=== PATIENT | female | born 1955 | race Caucasian/White ===

== ENCOUNTER → 2022-12-05 10:10 | Outpatient (CLI) | payer MEDICARE, OTHER, SELFPAY ==
[2022-12-05 11:55] LABS: Alanine Aminotransferase 29 IU/L (<35); Albumin 4.7 g/dL (3.5-5.0); Albumin Globulin Ratio 1.5 (1.0-2.8); Alkaline Phosphatase 102 U/L (38-126); Aspartate Aminotransferase 29 IU/L (14-36); BUN Creatinine Ratio 17.2 (6-22); Bilirubin Total 0.4 mg/dL (0.2-1.3); Blood Urea Nitrogen 15 mg/dL (7-17); Calcium 9.8 mg/dL (8.4-10.2); Carbon Dioxide 26 mmol/L (22-32); Chloride 102 mmol/L (98-107); Estimated Glomerular Filt Rate > 60 mL/min (>60); Globulin 3.2 g/dL (1.7-4.1); Glucose 95 mg/dL (80-110); HDL Cholesterol 50 mg/dL (40-60); HEMOLYSIS < 15 (0-50); Potassium 4.2 mmol/L (3.4-5.1); Sodium 138 mmol/L (137-145); Total Protein 7.9 g/dL (6.3-8.2); Triglycerides 425 mg/dL (35-150)
[2022-12-05 12:02] LABS: Cholesterol 341 mg/dL (140-199)
[2022-12-05 12:26] LABS: Hepatitis B Surface Antigen NEGATIVE s/c (NEGATIVE)
[2022-12-05 12:42] LABS: HIV 1 & 2 Ab/Ag 4th Gen Combo NEGATIVE (NEGATIVE); Hep C Virus Ab w/Reflex Quant NEGATIVE s/c (NEGATIVE)
[2022-12-05 14:26] LABS: Urine N gonorrhoeae NOT DETECTED
[2022-12-05 14:27] LABS: Urine Chlamydia NOT DETECTED
[2022-12-06 05:53] LABS: RPR Screen Non Reactive (Non Reactive)
== END ==
PROVIDERS: PCP Family Medicine; Referring Provider Family Medicine; Visit Provider Family Medicine
DX: Z11.3 Encounter for screening for infections with a predominantly sexual mode of transmission (principal); B00.9 Herpesviral infection, unspecified; M81.0 Age-related osteoporosis without current pathological fracture; Z79.890 Hormone replacement therapy
CPT/HCPCS: 36415; 80053; 80061; 86592; 86803; 87340; 87389; 87491; 87591

== ENCOUNTER → 2023-11-01 14:07 | Outpatient (CLI) | payer MEDICARE, OTHER, SELFPAY ==
--- NOTE | 2023-11-01 14:09 | DI.RAD.S_ITS ---
PROCEDURE: XR DEXA AXIAL SKELETON INDICATIONS: screening COMPARISON: None. FINDINGS: Lumbar Spine: Bone mineral density 1.020 g/cm2, T score -2.0. Left Hip: Bone mineral density 0.827 g/cm2, T score -0.9. Left Femoral Neck: Bone mineral density 0.610 g/cm2, T score -2.2. Right Hip: Bone mineral density 0.788 g/cm2, T score -1.3. Right Femoral Neck: Bone mineral density 0.565 g/cm2, T score -2.6. Fracture Risk Calculation (when applicable): FRAX not provided due to osteoporosis. (T score greater or equal to -1.0 to: NORMAL) (T score from -1.1 to -2.4: OSTEOPENIA) (T score less than or equal to -2.5: OSTEOPOROSIS) IMPRESSION: Osteoporosis at the right femoral neck. Follow-up guidelines as follows: Osteoporosis: Consider a repeat DEXA and Vertebral Fracture Assessment (VFA) exam in 2 years or sooner if medically necessary, to reassess this patient's status. Osteopenia: Consider a repeat DEXA in 2-3 years to reassess this patient's status, or if there is a new clinical indication. Normal: Consider a repeat DEXA in 5 years or sooner, or if there is a new clinical indication. Dictated by: Chino Arguello M.D. on 11/01/2023 at 15:04 Approved by: Chino Arguello M.D. on 11/01/2023 at 15:08
--- NOTE | 2023-11-01 14:09 | DI.MG.S_ITS ---
BILATERAL DIGITAL SCREENING MAMMOGRAM 3D/2D WITH CAD: 11/01/2023 CLINICAL: Routine screening. Additional films were requested but not obtained. Both breasts are heterogeneously dense, which may obscure small masses (category c / 51-75% glandular tissue). Current study was also evaluated with a Computer Aided Detection (CAD) system. No significant masses, calcifications, or other findings are seen in either breast. IMPRESSION: NEGATIVE There is no mammographic evidence of malignancy. A 1 year screening mammogram is recommended. Based on the Tyrer Cuzick model (a risk assessment model) the patient's lifetime risk is 10.5% and her 10 year risk is 5.3%. According to the ACR, ACS, and NCCN guidelines, an annual breast MRI exam along with mammogram is recommended if the patient's lifetime risk is 20% or greater. This exam was interpreted at Station ID: [id number]. NOTE: For mammograms, a report in lay terms will be sent to the patient. Approximately 15% of breast malignancies will not be visualized mammographically. In the management of a palpable breast mass, a negative mammogram must not discourage biopsy of a clinically suspicious lesion. Electronically Signed By: Shukri valle/smita:11/05/2023 15:19:49 letter sent: Normal Exam ACR BI-RADS Category 1: Negative 3341F
== END ==
PROVIDERS: PCP Family Medicine; Referring Provider Family Medicine; Visit Provider Family Medicine
DX: R92.333 Mammographic heterogeneous density, bilateral breasts (principal); Z12.31 Encounter for screening mammogram for malignant neoplasm of breast; M81.0 Age-related osteoporosis without current pathological fracture; Z91.89 Other specified personal risk factors, not elsewhere classified
CPT/HCPCS: 77063; 77067; 77080

== ENCOUNTER 2023-11-14 12:47 | Day surgery (SDC) | payer MEDICARE, OTHER, SELFPAY ==
--- NOTE | 2023-11-14 | PATH_ITS ---
[facility] Accession Number: [id number] No. of containers..02 Tissue . 01 Material submitted: . PART A: colon - ASCENDING POLYPS PART B: colon - DESCENDING POLYP . 01 Diagnosis: Part A: ASCENDING POLYPS: Tubular adenomas. . Part B: DESCENDING POLYP: Tubular adenoma. [facility] 11/18/2023 1150 Local . 01 Electronically signed: . Marvin Grimes MD, Pathologist NPI- [id number] . 01 Gross description: . A. Received in formalin with two patient identifiers and ascending polyps, are two terrazas-white polypoid tissues measuring 0.2 and 0.3 cm in greatest dimension. The specimens are entirely submitted in cassette A1. . B. Received in formalin with two patient identifiers and descending polyp, is a 0.8 x 0.7 x 0.5 cm, terrazas, granular, pedunculated, polypoid tissue which is inked, bisected, and entirely submitted in cassette B1. ([id number]) /MRV 11/18/2023 1150 Local . 01 Pathologist provided ICD-10: D12.2, D12.4 . 01 CPT . 247640, [id number] Specimen Comment: A courtesy copy of this report has been sent to [phone] Performed at: 01 [facility] [address] [place] [address], [place], [place] [id number] MD Marvin Grimes MD Phone: [phone]
[2023-11-14 13:13] VITALS: BP 143/77; PULSE 65; RESP 16; TEMP 36.7; O2SAT 98
[2023-11-14] MEDS: LACTATED RINGERS 1,000 ML 150 ML IV (13:15)
--- NOTE | 2023-11-14 13:26 | P.HP_ITS ---
History of Present Illness History of Present Illness Date Patient Seen: 11/14/23 Time Patient Seen: 13:26 Chief complaint: Colonoscopy Narrative: Adia is a 67-year-old woman here for colonoscopy. Her last colonoscopy was in 2017 and she would polyps removed and was told to repeat her colonoscopy after 3 years. She did postpone her colonoscopy due to COVID. She has a grandmother who at a young age from colon cancer. [facility] Medical History (Updated 11/14/23 @ 13:27 by Christian Aleman MD) Rosacea (~1992) Rheumatoid arthritis Asthma Hepatitis Chicken pox Heavy menstrual period Genital warts Colon polyps Skin cancer Hyperlipidemia, mixed Encounter for initial annual wellness visit (AWV) in Medicare patient Hormone replacement therapy Osteoporosis Herpes simplex type 2 infection Surgical History (Updated 12/23/22 @ 21:35 by Sunitha Quintana) Anesthesia History of section Status post Mohs surgery Family History (Updated 12/23/22 @ 21:38 by Sunitha Quintana) Grandfather Liver cancer Grandmother Diabetes mellitus History of heart disease Hypertension Grandfather Mental health problem Grandmother Colon cancer Social History Smoking Status: Never smoker alcohol intake: current Meds Home Medications and Allergies Home Medications Medication Instructions Recorded Confirmed Type estradiol 0.01% (0.1 mg/gram) See Rx Instructions vaginal DAILY 12/05/22 11/14/23 Rx vaginal cream (Estrace) #42.5 grams valacyclovir 1 gram tablet 1,000 mg PO DAILY 7 days #30 tabs 10/16/23 11/14/23 Rx peg 3350-sod sulf,itnef-pml-exk 1,000 ml PO DIRECTED #2,000 mL 11/01/23 Rx 178.7-7.3-0.5-1.12-0.9 gram oral soln (Suflave) albuterol sulfate 90 mcg/actuation 2 puff inhalation PRN sob 11/14/23 History aerosol inhaler alendronate 70 mg tablet (Fosamax) 70 mg PO QWEEK 11/14/23 11/14/23 History Allergies Allergy/AdvReac Type Severity Reaction Status Date / Time Sulfa (Sulfonamide AdvReac Mild Verified 12/05/22 09:29 Antibiotics) Exam Vital Signs (past 8 hours): - 11/14/23 13:13 Temperature 98.1 F Pulse Rate 65 Respiratory Rate 16 Blood Pressure 143/77 H Pulse Oximetry 98 Oxygen Delivery Method Room Air Oxygen Delivery Method Room Air Const General: healthy appearing Resp Effort & Inspection: normal respiratory effort Assessment & Plan Assessment and plan (1) History of colon polyps: Status: Acute Plan We reviewed the risks and benefits of colonoscopy and she would like to proceed.
[2023-11-14 14:05] VITALS: BP 98/58; PULSE 58; RESP 16; TEMP 36.2; O2SAT 98
--- NOTE | 2023-11-14 14:07 | PM.OP.COLON ---
Operative Date/Time/Diagnoses Date of procedure: 11/14/23 Time of procedure: 14:07 Pre-op diagnosis: History of polyps Post-op diagnosis: same Procedure & Clinicians Study performed: Colonoscopy Same procedure as scheduled: Yes Surgeon: Christian Aleman Procedure Notes Procedure in detail: Surgeon: Christian Aleman MD Anesthesia: Vamshi Abrams MD Procedure: The patient was brought to the endoscopy suite, placed in left lateral decubitus position. The patient was connected to monitoring devices. A time-out was performed. Sedation was administered. Once the patient was adequately sedated, a digital rectal exam was performed and was normal. The scope was then inserted and advanced to the cecum where the appendiceal orifice was identified and photographed. The scope was then slowly withdrawn over greater than 6 minutes. The mucosa was thoroughly inspected. There were 2 small polyps in the ascending colon removed with a cold snare and sent together. There was a 1.3 cm polyp in the proximal descending colon or distal transverse colon. It was taken with a hot snare and removed with a Lee net. We then went back in to inject some tattoo ink into the mucosa just distally and proximally to the polypectomy site. The rest of the colon was normal. The scope was retroflexed in the rectum. No other abnormalities were seen. The scope was straightened and removed. The patient was awakened and brought to recovery. Scope withdrawal time: 19 minutes Sedation time: 29 minutes EBL: 5 mL Findings: 2 small polyps in the ascending colon and a 1.3 cm polyp near the splenic flexure Post-procedure Disposition: PACU
[2023-11-14 14:10] VITALS: BP 99/58; PULSE 54; RESP 16; O2SAT 98
[2023-11-14 14:15] VITALS: BP 110/64; PULSE 54; RESP 16; O2SAT 98
== END 2023-11-14 14:27 | disposition home or self-care (01) ==
PROVIDERS: PCP Family Medicine; Referring Provider Surgery; Visit Provider Surgery
PROC: 0DJD8ZZ Inspection of Lower Intestinal Tract, Via Natural or Artificial Opening Endoscopic (ICD-10-PCS; CPT 45378; principal; 2023-11-14 13:30)
DX: Z12.11 Encounter for screening for malignant neoplasm of colon (principal); Z86.010 Personal history of colon polyps; D12.2 Benign neoplasm of ascending colon; D12.4 Benign neoplasm of descending colon
CPT/HCPCS: 45381; 45385; J2704

== ENCOUNTER → 2023-11-26 10:27 | Outpatient (CLI) | payer MEDICARE, OTHER, SELFPAY | PROVIDERS: PCP Family Medicine; Visit Provider Student in an Organized Health Care Education/Training Program | DX: J02.9 Acute pharyngitis, unspecified (principal) | CPT/HCPCS: 87070 ==

== ENCOUNTER → 2024-02-26 09:31 | Outpatient (CLI) | payer MEDICARE, OTHER, SELFPAY ==
[2024-02-26 11:03] LABS: Erythrocyte Sedimentation Rate 51 MM/HR (0-20)
[2024-02-26 11:28] LABS: TSH w/ Reflex to FT4 4.98 uIU/mL (0.47-4.68)
[2024-02-26 19:26] LABS: Alanine Aminotransferase 22 IU/L (<35); Albumin 4.4 g/dL (3.5-5.0); Albumin Globulin Ratio 1.5 (1.0-2.8); Alkaline Phosphatase 80 U/L (38-126); Aspartate Aminotransferase 27 IU/L (14-36); BUN Creatinine Ratio 27.5 (6-22); Bilirubin Total 0.6 mg/dL (0.2-1.3); Blood Urea Nitrogen 19 mg/dL (7-17); Calcium 9.7 mg/dL (8.4-10.2); Carbon Dioxide 19 mmol/L (22-32); Chloride 106 mmol/L (98-107); Cholesterol 309 mg/dL (140-199); Estimated Glomerular Filt Rate > 60 mL/min (>60); Glucose 90 mg/dL (80-110); HDL Cholesterol 42 mg/dL (40-60); HEMOLYSIS < 15 (0-50); LDL Cholesterol Calculated 216 mg/dL (<100); Potassium 4.5 mmol/L (3.4-5.1); Sodium 137 mmol/L (137-145); Total Protein 7.4 g/dL (6.3-8.2); Triglycerides 253 mg/dL (35-150)
[2024-02-26 19:37] LABS: LDL Cholesterol Direct 201 mg/dL (<100)
[2024-02-26 19:42] LABS: Rheumatoid Factor 349.5 IU/mL (<12.0)
[2024-02-28 11:15] LABS: CCP Antibodies IgG/IgA >250 units (0-19)
== END ==
PROVIDERS: PCP Family Medicine; Referring Provider Family Medicine; Visit Provider Family Medicine
DX: Z00.00 Encounter for general adult medical examination without abnormal findings (principal); E78.2 Mixed hyperlipidemia; M81.0 Age-related osteoporosis without current pathological fracture; Z79.890 Hormone replacement therapy; M25.50 Pain in unspecified joint; J30.81 Allergic rhinitis due to animal (cat) (dog) hair and dander; H69.90 Unspecified Eustachian tube disorder, unspecified ear
CPT/HCPCS: 36415; 80053; 80061; 83721; 84439; 84443; 85651; 86200; 86430

== ENCOUNTER → 2025-01-04 16:00 | Outpatient (CLI) | payer MEDICARE, OTHER, SELFPAY ==
--- NOTE | 2025-01-04 16:01 | DI.MG.S_ITS ---
MM screening mammo BI: 01/04/2025. BI-RADS: 1 CLINICAL: 69-year old female for bilateral screening mammogram. Tyrer-Cuzick lifetime risk of 6.8%. No personal or first-degree family history of breast cancer. PRIOR EXAMS 11/01/2023. MAMMOGRAPHY TECHNIQUE: 2D and 3D (tomosynthesis) digital mammographic views obtained, with additional images as needed for full coverage. Current study was also evaluated with a Computer Aided Detection (CAD) system. DENSITY C. The breasts are heterogeneously dense, which may obscure small masses. MAMMOGRAPHY FINDINGS Bilateral: No suspicious mass, asymmetry, microcalcification, or other abnormality seen. No significant change from comparison. IMPRESSION: * No evidence of malignancy. RECOMMENDATIONS Bilateral * Annual screening mammography. OVERALL ASSESSMENT CATEGORY BI-RADS-1: Negative. The [employer] recommends annual screening mammography beginning at age 40 for women with average risk of breast cancer. ELECTRONICALLY SIGNED: Shukri Castillo M.D. on 01/05/2025 at 10:46:39 AM PT
== END ==
PROVIDERS: PCP Family Medicine; Referring Provider Family Medicine; Visit Provider Family Medicine
DX: Z12.31 Encounter for screening mammogram for malignant neoplasm of breast (principal); R92.333 Mammographic heterogeneous density, bilateral breasts
CPT/HCPCS: 77063; 77067

== ENCOUNTER → 2025-04-21 08:28 | Outpatient (CLI) | payer MEDICARE, OTHER, SELFPAY ==
[2025-04-21 08:59] LABS: Hematocrit 36.3 % (36-46); Hemoglobin 12.3 g/dL (12.0-16.0); Mean Corpuscular HGB Conc 33.9 % (30-36); Mean Corpuscular Hemoglobin 29.7 PG (26-34); Mean Corpuscular Volume 87.8 fL (80-100); Platelet Count 255 X10^3/uL (150-400)
[2025-04-21 09:27] LABS: Alanine Aminotransferase 26 IU/L (<35); Albumin 4.8 g/dL (3.5-5.0); Albumin Globulin Ratio 1.7 (1.0-2.8); Alkaline Phosphatase 71 U/L (38-126); Blood Urea Nitrogen 21 mg/dL (7-17); Calcium 9.6 mg/dL (8.4-10.2); Carbon Dioxide 25 mmol/L (22-32); Chloride 104 mmol/L (98-107); Cholesterol 274 mg/dL (140-199); Estimated Glomerular Filt Rate > 60 mL/min (>60); Globulin 2.9 g/dL (1.7-4.1); Glucose 96 mg/dL (70-99); HDL Cholesterol 52 mg/dL (40-60); HEMOLYSIS < 15 (0-50); Potassium 4.5 mmol/L (3.4-5.1); Sodium 139 mmol/L (137-145); Total Protein 7.7 g/dL (6.3-8.2); Triglycerides 131 mg/dL (35-150)
[2025-04-21 09:48] LABS: TSH w/ Reflex to FT4 3.42 uIU/mL (0.47-4.68)
== END ==
PROVIDERS: PCP Internal Medicine; Referring Provider Internal Medicine; Visit Provider Internal Medicine
DX: M06.9 Rheumatoid arthritis, unspecified (principal); E78.2 Mixed hyperlipidemia; M81.0 Age-related osteoporosis without current pathological fracture
CPT/HCPCS: 80053; 80061; 84443; 85027; 85651; 86038; 86140; 86200; 86430

== ENCOUNTER → 2025-05-26 16:18 | Outpatient (CLI) | payer MEDICARE, OTHER, SELFPAY ==
--- NOTE | 2025-05-26 16:20 | DI.RAD.S_ITS ---
PROCEDURE: XR FOOT LT 2V INDICATIONS: rheumatoid arthritis TECHNIQUE: 2 views of the foot were acquired. COMPARISON: [facility], CR, XR ANKLE LT MIN 3V, 03/02/2025, 14:13. [facility], CR, XR FOOT RT 2V, 05/26/2025, 16:17. [facility], CR, XR HAND LT 2V, 05/26/2025, 16:17. [facility], CR, XR HAND RT 2V, 05/26/2025, 16:17. FINDINGS: Bones: No fractures or dislocations. No suspicious bony lesions. Mild scattered bony erosions are seen, including involving the interphalangeal joint of the great toe as well as the distal aspect of the 5th metatarsal. Generalized degenerative changes are seen, which are worst along the Lisfranc joint. Incidental note is made of a bipartite medial sesamoid bone. Soft tissues: No tibiotalar joint effusion. Achilles tendon appears normal. IMPRESSION: Bony erosions are seen which are consistent with the given clinical history of rheumatoid arthritis. Focal Lisfranc joint degenerative change is seen. Dictated by: Kenn Carpenter M.D. on 05/29/2025 at 19:08 Approved by: Kenn Carpenter M.D. on 05/29/2025 at 19:09
--- NOTE | 2025-05-26 16:20 | DI.RAD.S_ITS ---
PROCEDURE: XR HAND LT 2V INDICATIONS: hand pain TECHNIQUE: 2 views of the hand(s) acquired. COMPARISON: [facility], CR, XR FOOT RT 2V, 05/26/2025, 16:17. [facility], CR, XR FOOT LT 2V, 05/26/2025, 16:17. [facility], CR, XR HAND RT 2V, 05/26/2025, 16:17. . FINDINGS: Bones: No fractures or dislocations. Carpal bones are normally aligned. There is a bony erosion seen involving the ulnar proximal aspect of the 5th metacarpal. Potential bony erosions can be seen involving the carpal bones. Mild generalized osteoarthritic degenerative changes are seen which are worst involving the 1st carpometacarpal joint Soft tissues: No suspicious soft tissue calcifications. IMPRESSION: Bony erosions are seen, likely related to rheumatoid arthritis. Dictated by: Kenn Carpenter M.D. on 05/29/2025 at 19:06 Approved by: Kenn Carpenter M.D. on 05/29/2025 at 19:07
--- NOTE | 2025-05-26 16:20 | DI.RAD.S_ITS ---
PROCEDURE: XR HAND RT 2V INDICATIONS: hand pain TECHNIQUE: 2 views of the hand(s) acquired. COMPARISON: [facility], CR, XR FOOT RT 2V, 05/26/2025, 16:17. [facility], CR, XR FOOT LT 2V, 05/26/2025, 16:17. [facility], CR, XR HAND LT 2V, 05/26/2025, 16:17. FINDINGS: Bones: No fractures or dislocations. Carpal bones are normally aligned. There is a bony erosion seen involving the proximal ulnar aspect of the 5th metacarpal. There is a focal bony erosion seen involving the proximal aspect of the proximal phalanx of the 2nd finger. Generalized osteoarthritic degenerative changes are also seen. Soft tissues: No suspicious soft tissue calcifications. IMPRESSION: Bony erosions are seen. Please consider rheumatoid arthritis. Dictated by: Kenn Carpenter M.D. on 05/29/2025 at 19:03 Approved by: Kenn Carpenter M.D. on 05/29/2025 at 19:06
--- NOTE | 2025-05-26 16:20 | DI.RAD.S_ITS ---
PROCEDURE: XR FOOT RT 2V INDICATIONS: rheumatoid arthritis TECHNIQUE: 2 views of the foot were acquired. COMPARISON: [facility], CR, XR HAND LT 2V, 05/26/2025, 16:17. [facility], CR, XR FOOT LT 2V, 05/26/2025, 16:17. [facility], CR, XR HAND RT 2V, 05/26/2025, 16:17. FINDINGS: Bones: No fractures or dislocations. Generalized degenerative changes are seen. There are tiny bony erosions seen involving the proximal aspects of the proximal phalanges of the 1st and 5th toes. Soft tissues: No tibiotalar joint effusion. Achilles tendon appears normal. IMPRESSION: Bony erosions are seen which are consistent with the given clinical history of rheumatoid arthritis. Generalized osteoarthritic degenerative changes are also seen. Dictated by: Kenn Carpenter M.D. on 05/29/2025 at 19:07 Approved by: Kenn Carpenter M.D. on 05/29/2025 at 19:08
== END ==
PROVIDERS: PCP Internal Medicine; Referring Provider Internal Medicine; Visit Provider Internal Medicine
DX: M15.0 Primary generalized (osteo)arthritis (principal); M05.9 Rheumatoid arthritis with rheumatoid factor, unspecified
CPT/HCPCS: 73120; 73620